=== PATIENT | female | born 1980 | race Caucasian/White ===

== ENCOUNTER 2016-08-12 01:10 | Emergency (ER) | payer OTHER ==
--- NOTE | 2016-08-12 07:50 | RAD ---
HISTORY: Patient rolled foot. Medial pain. Initial encounter. COMPARISON: None TECHNIQUE:Three views Foot Laterality:Left FINDINGS: Bones: No fracture or dislocation. Bone island is noted within the talar neck distally. Joints: Mild joint space loss is seen at the first MTP joint. Soft tissue: Normal IMPRESSION: No fracture or dislocation.
== END 2016-08-12 02:36 | disposition home or self-care (01) ==
LOC: ED 01:10
DX: M79.672 Pain in left foot (principal); G40.909 Epilepsy, unspecified, not intractable, without status epilepticus; W01.0XXA Fall on same level from slipping, tripping and stumbling without subsequent striking against object, initial encounter; Y93.01 Activity, walking, marching and hiking; Y92.9 Unspecified place or not applicable